=== PATIENT | male | born 1965 | race Caucasian/White ===

== ENCOUNTER → 2018-07-14 08:11 | Outpatient (CLI) | payer MEDICAID, SELFPAY ==
[2018-07-11 08:41] VITALS: BMI 36.9
[2018-07-14 12:23] LABS: Absolute Lymphocyte Count 2.74 X10^3/ul (0.83-4.51); Basophil# 0.02 X10^3/uL; Basophil% 0.2 % (0-1); Eosinophil# 0.44 X10^3/uL; Eosinophils% 4.5 % (0-5); Hematocrit 46.1 % (40-54); Hemoglobin 15.4 g/dl (13.0-16.5); Lymphocyte # 2.74 X10^3/ul (4.0); Lymphocyte % 28.2 % (19-41); Mean Corp Hgb Conc 33.4 g/gl (32-36); Mean Corpuscular Hgb 30.2 pg (27.0-32.0); Mean Corpuscular Volume 90.4 fL (80-94); Mean Platelet Vol. 10.2 fl (6.2-12.0); Monocyte# 0.52 X10^3/uL; Monocyte% 5.3 % (0-10); Neutrophil # 5.99 X10^3/uL (2.7-7.7); Neutrophil % 61.6 % (47-70); Platelet Count 272 K/mm3 (150-450); RBC Distribution Width CV 12.9 % (11.6-14.6); White Blood Count 9.7 K/mm3 (4.4-11.0)
[2018-07-14 12:26] LABS: POSITIVE COUNT NO; POSITIVE DIFFERENTIAL NO; POSITIVE MORPHOLOGY NO
[2018-07-14 12:59] LABS: ALB/GLOB Ratio 1.2 RATIO (0.9-2.4); AST(SGOT) 14 U/L (15-37); Alanine Aminotransfer ALT/SGPT 30 U/L (16-61); Alkaline Phosphatase 77 U/L (45-117); Anion Gap 7 (5-15); BUN 12 mg/dL (7-18); BUN/Creat Ratio 13.4 RATIO (10-20); Calcium,Total 8.8 mg/dL (8.5-10.1); Chloride 104 mmol/L (98-107); Cholesterol 197 mg/dL (200); EST Glomerular Filtration Rate 94 mL/min (>60); Est Glom Filt Rate - Afr Amer 114 mL/min (>60); Globulin 3.3 g/dL (2.2-4.2); Glucose 220 mg/dL (74-106); High Density Lipoprotein 42 mg/dL; Potassium 4.3 mmol/L (3.5-5.1); Protein, Total 7.3 g/dL (6.4-8.2); Sodium Level 136 mmol/L (136-145); Triglycerides 227 mg/dL; Very Low Density Lipoprotein 45 mg/dL (5-40)
[2018-07-14 13:08] LABS: Microalbumin,Random Urine 18.9 mg/L (NO RANGE EST.); Microalbumin:Creatinine Ratio 11.1 mg/g CRE (<30 mg/g CRE)
== END ==
PROVIDERS: Family Provider Family Medicine; PCP Internal Medicine; Visit Provider Internal Medicine
DX: E11.9 Type 2 diabetes mellitus without complications (principal)
CPT/HCPCS: 36415; 80053; 80061; 82043; 82570; 85025

== ENCOUNTER 2019-01-31 06:49 | Day surgery (SDC) | payer OTHER, SELFPAY ==
[2018-12-13 08:35] VITALS: BMI 36.9
[2019-01-31 07:27] VITALS: BP 118/73; PULSE 83; RESP 16; TEMP 36.3; O2SAT 97; BMI 34.7
[2019-01-31] MEDS: Lactated Ringers 1,000 ML 100 ML IV (07:38)
--- NOTE | 2019-01-31 07:52 | HP.PCM_ITS ---
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 Is patient in pain?: No Allergies No Known Allergies Allergy (Verified 12/13/18 08:34) Medications escitalopram 10 mg tablet 10 mg PO DAILY #90 tab 10/03/18 [Rx Confirmed 12/13/18] glimepiride 4 mg tablet 4 mg PO QAM #90 tab 10/03/18 [Rx Confirmed 12/13/18] metformin 1,000 mg tablet 1,000 mg PO BID #180 tab 10/03/18 [Rx Confirmed 12/13/18] nicotine 14 mg/24 hr daily transdermal patch 1 patch TRANSDERMAL DAILY #14 ea 10/31/18 [Rx Confirmed 12/13/18] nicotine 7 mg/24 hr daily transdermal patch 1 patch TRANSDERMAL Q24H #14 ea 10/31/18 [Rx Confirmed 12/13/18] dulaglutide 1.5 mg/0.5 mL subcutaneous pen injector 1.5 mg SC QWEEK #2 ml 12/02/18 [Rx Confirmed 12/13/18] PFSH Medical History Anxiety (Chronic) History of pneumonia (Acute) Shoulder pain (Acute) Knee pain (Acute) Limb weakness (Acute) Chronic neck and back pain (Chronic) Diabetes (Chronic) Surgical History History of colonoscopy (Acute) History of tonsillectomy (Acute) History of vasectomy (Acute) Family History Grandfather Colon cancer Alcoholism Father Hypertension Mother Dementia Social History (Updated 12/13/18 @ 09:05 by Fco Harley MD) Smoking Status: Current every day smoker Tobacco: How many years used: 35 alcohol intake: current alcohol intake frequency: a few times a month substance use type: does not use what type of physical activity do you participate in: other details: active job HPI HPI HPI: FCO LUGO, is a 53 M who presents to the office today for HPI HPI Surgical H&P: Yes HPI: FCO LUGO, is a 53 M who presents to the office today for surgical consultation regarding a personal history of colon polyps. 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 Type II diabetic. He has been recently placed on Trulicity. His most recent hemoglobin A1c was 10.1. His most recent colonoscopy was September 23, [address] Jf Lynne under monitored anesthesia care. 3 sessile polyps were found in the rectum and in the transverse colon and at 30 cm proximal to the anus. These polyps were 10 mm in size. Hot snare was used for resection. A 15 mm polyp was found 40 cm proximal to the anus. Diverticulosis was identified as well. Random colonic biopsies showed no evidence of colitis. The transverse colon polyp was a tubular adenoma. The 40 cm polyp tubular adenoma. The polyp at 30 cm was a hyperplastic polyp in the rectal polyp was hyperplastic polyp. The patient is now referred for follow-up. He has no complaints of bright red blood per rectum or melena. No abdominal pain. No constipation or diarrhea. He otherwise has a stable feeling of health and wellness. It is of note that he does use tobacco and his diabetic control is challenging ROS General General: No weight change, appetite, fatigue, colon cancer, breast cancer or weakness HEENT HEENT: No difficulty swallowing, eye injury, eye surgery, swollen glands or hoarseness Endo Endocrine: Yes diabetes mellitus; no thyroid disease, thyroid cancer, Hair loss, heat intolerance or cold intolerance Skin Skin: No rash or changing moles Breast Breast: No left breast lump, right breast lump, nipple discharge, breast pain, abnormal mammogram, abnormal US or breast enlargement Musc Musculoskeletal: No back problems, arthritis, rheumatoid arthritis, gout or joint pain Cardio Cardiovascular: No murmur, pacemaker, heart disease, atrial fibrillation, high blood pressure, heart attack, heart stent, palpitations, shortness of breat with exertion or chest pain Psych Psychiatric: No depression, anxiety or hearing voices Resp Respiratory: No shortness of breath, No sleep apnea, No cough, No COPD, No asthma, No emphysema, No wheezing Gastro Gastrointestinal: No abdominal pain, No nausea or vomiting, No diarrhea, No constipation, No blood in stool, No acid reflux, No hemorrhoids, No ulcers, No gallbladder problem, No black,tarry stools Gokul Hematologic: No blood thinners, No blood disorders, No bleeding, No anemia, No blood clots Neuro Neurologic: No system reviewed and no additional complaints, except as docu, No as per HPI, No abnormal walking, No abnormal hearing, No abnormal movements, No abnormal speech, No behavioral changes, No burning sensations, No confusion, No seizure-like activity, No unsteadiness, No dizziness, No localized weakness, No frequent falls, No headache(s), No lack of coordination, No loss of vision, No memory loss, Yes numbness, No other visual disturbances, No radiating pain, No restless legs, No sensory deficit, No fainting, Yes tingling, No tremor(s), No weakness, No other Exam Const General: cooperative, comfortable, no acute distress Nutritional Appearance: obese Orientation: alert, awake HENMT Head: normal to inspection Chest Breast Palpation: No nipple discharge Resp Effort & Inspection: normal respiratory effort Auscultation: clear to auscultation bilaterally Cardio Rate: regular rate Rhythm: regular rhythm Heart Sounds: no murmurs GI Palpation: soft, no hepatosplenomegaly Auscultation: normal bowel sounds Neuro General: alert, awake Extrem General: no calf tenderness bilaterally Psych Affect: normal affect Assessment & Plan Problems 1. Personal history of colonic polyps Z86.010 Plan 53-year-old gentleman with a personal history of colon polyps with his most recent colonoscopy September 23, 2015. He had sizable polyps at that time. I recommend to him a colonoscopy with possible biopsy or polypectomy as indicated. His previous procedure was performed with monitored anesthesia care and we will duplicate. The patient is diabetic I have strongly counseled him on taking more of a personal energy and interest in controlling his diabetic health. The patient is a tobacco smoker. He was provided nicotine patches. He is not utilizing them. I have encouraged him to initiate cessation of tobacco. I very much appreciate the kind opportunity of assisting with his surgical care CC: Dr. Jenelle Harley M.D., F.A.C.S. Coding Level of Care Code 92171 Diagnoses Personal history of colonic polyps Z86.010 I have re-examined the patient. There are no clinical changes since date of exam.
--- NOTE | 2019-01-31 08:00 | COLBX_PTH ---
PATIENT: FCO LUGO LOC: EN U#:[id number] AGE/SX: 53/M ROOM: RE01/31/[address]: Dr. Fco Harley MD : 1965 BED: DIS: 01/31/2019 SPEC #: [id number] RECD: 01/31/19 12:12 STATUS: AMY LUISITO #: [id number] BIA: 01/31/19 08:[address]: Fco Harley DEPT: SURGICAL PATHOLOGY RECD BY: Yogesh Ahn ENTERED: 01/31/19 14:14 SP TYPE: COLON BX OTHR DR: Dr. Arabella Almanzar MD Tissues: A - Cecum, NOS B - Transverse colon C - Rectum, NOS Procedures: Surgery Specimen Level IV HEADER OPERATION: Colonoscopy (MAC) PRE-OP DIAGNOSIS: Personal history of colon polyps TISSUE SUBMITTED: A. Cecum polyp, B. Mid transverse polyp biopsy, C. Rectal polyp biopsy MICROSCOPIC DIAGNOSIS A. Cecal polyp, biopsy: Fragments of tubular adenoma. Fragments of fecal material. B. Mid transverse colon polyp, biopsy: Tubular adenoma. C. Rectal polyp, biopsy: Fragments of fecal material. Colonic mucosal tissue is not identified. SJ:jatin 02/01/19 COMMENT Correlation with clinical, endoscopic findings and appropriate follow up are necessary. MICROSCOPIC DESCRIPTION Slides are reviewed. GROSS DESCRIPTION A - Received in fixative is one container labeled with the patient's name and designated cecum polyp. The specimen consists of multiple irregular fragments of light tee soft tissue mixed with fecal material that in aggregate measure 2.5 x 0.3 x 0.1 cm. The specimen is totally submitted in one cassette. B - Received in fixative is one container labeled with the patient's name and designated mid transverse colon polyp. The specimen consists of multiple irregular fragments of light tee soft tissue that in aggregate measure 0.5 x 0.5 x 0.1 cm. The specimen is totally submitted in one cassette. C - Received in fixative is one container labeled with the patient's name and designated rectal polyp biopsy. The specimen consists of scant fragments of brownish material that in aggregate measure 0.2 x 0.1 x 0.1 cm. The specimen is totally submitted in one cassette. / FLAVIA:jatin 01/31/19 TC:1 CPT: 11957 x3
[2019-01-31 08:16] LABS: Bedside Glucose 114 mg/dL (70-110)
--- NOTE | 2019-01-31 08:28 | OP.ENDO_ITS ---
01/31/2019 Arabella Almanzar MD [address] [place] [address] [place] [address] Re : Colonoscopy procedure for Jeffery Ramos Dear Dr. Almanzar This procedure was performed on Thursday, January 31, 2019. My impressions and recommendations are as follows: Impressions : - Hemorrhoids found on perianal exam. - One 5 mm polyp in the cecum, removed with a hot snare. Resected and retrieved. - One 4 mm polyp in the mid descending colon, removed with a cold biopsy forceps. Resected and retrieved. - One 4 mm polyp in the rectum, removed with a hot snare. Resected and retrieved. - Diverticulosis in the sigmoid colon. Recommendations : - Discharge patient to home. - Resume previous diet. - Continue present medications. - Repeat colonoscopy in 3 years for surveillance based on pathology results. - Telephone my office for pathology results in 1 week. My findings are described in the full procedure note, which is enclosed. If I can be of further assistance, please feel free to contact me at Doctor phone number(s): Work: . Sincerely, Jeffery Harley MD 01/31/2019 8:28:31 AM This report has been signed electronically.
[2019-01-31 08:30] VITALS: BP 100/63; BP 118/73; PULSE 87; RESP 16; TEMP 36.2; O2SAT 96
[2019-01-31 08:35] VITALS: BP 112/78; BP 118/73; PULSE 81; RESP 16; O2SAT 95
[2019-01-31 08:40] VITALS: BP 118/73; BP 118/77; PULSE 74; RESP 16; O2SAT 98
[2019-01-31 08:45] VITALS: BP 108/79; BP 118/73; PULSE 76; RESP 16; TEMP 36.3; O2SAT 97
[2019-01-31 09:10] VITALS: BP 118/73
== END 2019-01-31 09:16 | disposition home or self-care (01) ==
LOC: EN 06:50 → AC 06:51
PROVIDERS: Family Provider Internal Medicine; PCP Internal Medicine; Referring Provider Internal Medicine; Visit Provider Surgery
PROC: 0DJD8ZZ Inspection of Lower Intestinal Tract, Via Natural or Artificial Opening Endoscopic (ICD-10-PCS; CPT 45378; principal; 2019-01-31 07:55)
DX: D12.0 Benign neoplasm of cecum (principal); D12.3 Benign neoplasm of transverse colon; K62.1 Rectal polyp; K57.30 Diverticulosis of large intestine without perforation or abscess without bleeding; K64.9 Unspecified hemorrhoids; Z86.010 Personal history of colon polyps; F41.9 Anxiety disorder, unspecified; M54.9 Dorsalgia, unspecified; M54.2 Cervicalgia; G89.29 Other chronic pain; E11.9 Type 2 diabetes mellitus without complications; Z87.01 Personal history of pneumonia (recurrent); Z79.84 Long term (current) use of oral hypoglycemic drugs; Z79.899 Other long term (current) drug therapy; F17.200 Nicotine dependence, unspecified, uncomplicated
CPT/HCPCS: 45380; 45385; 82962; 88305; J7120

== ENCOUNTER 2021-03-03 12:39 | Emergency (ER) | payer OTHER, SELFPAY ==
[2021-03-03 12:40] VITALS: BP 156/79; PULSE 94; RESP 18; TEMP 36.6; O2SAT 97; BMI 34.2
--- NOTE | 2021-03-03 14:45 | EX.ED.DYSGE1 ---
HPI History of Present Illness Chief Complaint: Other, Pain/Inj Informant: patient Narrative Narrative: Patient presents with mostly right-sided neck pain. Is been having this on and off for about 3 months. It will bother him and then improved. It is mostly sore when he looks down to the ground. Left right and up bothers it a little bit. He occasionally has had pain radiating to the upper part of the shoulder but never down further. He has never had numbness tingling or weakness of his hands. He has no specific injury. 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 Calos Barraza MD) Anxiety Chronic neck and back pain Diabetes History of pneumonia Knee pain Limb weakness Personal history of colonic polyps Shoulder pain Home Medications dulaglutide 1.5 mg/0.5 mL subcutaneous pen injector 1.5 mg SC QWEEK #2 ml 12/02/18 [Rx Last Taken Unknown] escitalopram oxalate 10 mg tablet 10 mg PO DAILY #90 tab 04/18/20 [Rx Last Taken Unknown] glimepiride 4 mg tablet See Rx Instructions .ROUTE .COMPLEX #30 tablet 07/22/20 [Rx Last Taken Unknown] metformin 1,000 mg tablet 1,000 mg PO BID #180 tab 02/21/21 [Rx Last Taken Unknown] cyclobenzaprine 10 mg PO BID PRN #15 tab 03/03/21 [Rx Last Taken Unknown] naproxen 500 mg PO BID #20 tab 03/03/21 [Rx Last Taken Unknown] Allergy/AdvReac Type Severity Reaction Status Date / Time No Known Allergies Allergy Verified 03/03/21 13:57 Family History Grandfather Colon cancer Alcoholism Father Hypertension Mother Dementia Surgical History History of colonoscopy History of tonsillectomy History of vasectomy Social History Smoking Status: Current every day smoker tobacco type: cigarettes Tobacco: How many years used: 35 alcohol intake: current alcohol intake frequency: a few times a month substance use type: does not use what type of physical activity do you participate in: other details: active job ROS ROS ED Constitutional Constitutional ED: Denies chills, fever(s) or sweats Eyes Eyes: Denies blurry vision ENT ENT ED: Denies ear pain, rhinorrhea or sore throat Cardiovascular Cardiovascular: Denies chest pain, palpitations or racing heartbeat Respiratory/Chest Respiratory/Chest: Denies cough, dyspnea, dyspnea on exertion or sputum Gastrointestinal Gastrointestinal: Denies abdominal pain Musculoskeletal Musculoskeletal: Reports neck pain; Denies arthralgias, back pain or myalgias Integumentary Denies Abrasions or rash Neurologic Neurologic: Reports other Details: Patient has had some pain radiate to the upper shoulder on the right but no paresthesias. ; Denies headache(s), paresthesias or weakness Endocrine Endocrinology: Reports other Details: He does have history of diabetes, is taking his meds, no polyuria polydipsia. ; Denies polydipsia or polyuria EXAM Physical Exam Const Vital Signs: 03/03/21 12:40 Temperature 98 F Temperature Source Temporal Pulse Rate 94 Respiratory Rate 18 Blood Pressure 156/79 H Blood Pressure Mean 104 Pulse Ox 97 Oxygen Delivery Method Room Air Positive well nourished and well developed General Appearance ED: well developed and NAD HEENT Reports moist mucous membranes HEENT Narrative: No rashes on head or neck area. Negative for trauma or tenderness Eyes PERRL and EOMs intact bilaterally General Eye ED: Negative for pale conjunctiva or scleral icterus Neck Neck Narrative: Patient does have some right paraspinal tenderness and tenderness down in the trapezius on the right. He has some discomfort looking down. This is more than looking left right or up. No crepitance. No JVD. No lymphadenopathy. No subcutaneous air. Chest Wall inspection of chest normal Resp normal respiratory effort and clear to auscultation bilaterally Effort and Inspection: Negative for pain with movement Auscultation: Negative for rales, rhonchi or wheezes Cardio regular rate, regular rhythm and no murmurs GI normal to inspection, nondistended, normoactive bowel sounds and non-tender Palpation: soft Back/Spine Back/Spine Narrative: Cervical spine tenderness as above. Cervical Spine: cervical spine tenderness Extremity normal to inspection Extremity Narrative: Normal shock absorption floor layer strength bicep tricep strength. Normal distal pulses. Normal sensation. General Extremety ED: Negative for tenderness Neuro oriented x3 Sensorium / Orientation: alert Psych mental status grossly normal Skin no rashes or lesions noted MDM MDM MDM Narrative Medical decision making narrative: We did do x-ray of his neck as this is been going off and on for several months. There is no mass or erosion noted. There was a little loss of cervical lordosis likely due to spasm clinically. There is spondylosis and disc space narrowing diffusely. I think the patient's symptoms are likely from arthritic changes and some muscle spasm. I would like to avoid steroids on him with his diabetes. We will start off with nonsteroidals muscle relaxants ice and rest. He will follow up with his physician. Physical therapy may help. If he develops worsening pain, numbness, weakness, trouble breathing chest pain diaphoresis fevers or other concerning symptoms he should return. Radiography Diagnostic Testing: Clinical Impression(s) from Imaging Studies Cervical Spine X-Ray 03/03/21 14:50 IMPRESSION: Loss of the normal cervical lordosis. Multilevel spondylosis and disc space narrowing. Electronically Signed: Josiah Dyson MD at 15:15 EDT , Service support , Discharge Plan Triage Chief Complaint: Other, Pain/Inj ED Provider: Calos Barraza Dx/Rx/DC Orders Clinical Impression: Cervical myofascial strain, Cervical paraspinal muscle spasm Instructions: ED Neck Sprain or Strain, ED Neck Spasm, No Trauma Prescriptions: New cyclobenzaprine 10 mg tablet 10 mg PO BID PRN (Reason: muscle spasm) Qty: 15 RF: 0 naproxen 500 MG tablet 500 mg PO BID Qty: 20 RF: 0 No Action Trulicity 1.5 mg/0.5 mL pen injector 1.5 mg SC QWEEK Qty: 2 RF: 2 escitalopram oxalate 10 mg tablet 10 mg PO DAILY Qty: 90 RF: 2 glimepiride 4 mg tablet See Rx Instructions .ROUTE .COMPLEX Qty: 30 RF: 11 metformin 1,000 mg tablet 1,000 mg PO BID Qty: 180 RF: 2 Primary Care Provider: Arabella Almanzar Referrals: Arabella Almanzar MD [Primary Care Provider] - 1 Week if not improving Disposition Disposition: Home, Self Care
--- NOTE | 2021-03-03 14:50 | RAD_ITS ---
STUDY: X-RAY - CERVICAL SPINE REASON FOR EXAM: Male, 55 years old. Right sided pain TECHNIQUE: 3 view(s) of the cervical spine were obtained. COMPARISON: None FINDINGS: Normal anterior atlantoaxial articulation. Normal odontoid process. There is straightening of the normal cervical lordosis. There is multi-level endplate spondylosis. There is multi-level degenerative disc disease with multilevel disc space narrowing. Normal visualized intervertebral neuroforamina. The soft tissue structures are unremarkable. RAD/Cerv Spine 2 or 3 Views IMPRESSION: Loss of the normal cervical lordosis. Multilevel spondylosis and disc space narrowing. Electronically Signed: Josiah Dyson MD at 15:15 EDT , Service support ,
== END 2021-03-03 16:05 | disposition home or self-care (01) ==
PROVIDERS: Emergency Provider Emergency Medicine; PCP Internal Medicine
DX: S16.1XXA Strain of muscle, fascia and tendon at neck level, initial encounter (principal); M62.838 Other muscle spasm; M47.812 Spondylosis without myelopathy or radiculopathy, cervical region; X58.XXXA Exposure to other specified factors, initial encounter; Y93.9 Activity, unspecified; Y92.9 Unspecified place or not applicable; E11.9 Type 2 diabetes mellitus without complications; F41.9 Anxiety disorder, unspecified; G89.29 Other chronic pain; Z87.01 Personal history of pneumonia (recurrent); Z86.010 Personal history of colon polyps; Z79.84 Long term (current) use of oral hypoglycemic drugs; Z79.899 Other long term (current) drug therapy; F17.210 Nicotine dependence, cigarettes, uncomplicated
CPT/HCPCS: 72040; 99282

== ENCOUNTER → 2021-03-11 13:44 | Outpatient (CLI) | payer OTHER, SELFPAY ==
[2021-03-11 15:03] LABS: Absolute Lymphocyte Count 3.51 X10^3/uL (0.83-4.51); Absolute Neutrophil Count 7.1 X10^3/uL (2.0-7.7); Basophil# 0.05 X10^3/uL; Basophil% 0.4 % (0-1); Eosinophil# 0.29 X10^3/uL; Eosinophils% 2.5 % (0-5); Hematocrit 46.2 % (40-54); Hemoglobin 16.1 g/dL (13.0-16.5); Lymphocyte # 3.51 X10^3/ul (0.83-4.51); Lymphocyte % 30.2 % (19-41); Mean Corp Hgb Conc 34.8 g/dL (32-36); Mean Corpuscular Volume 86.2 fL (80-94); Mean Platelet Vol. 10.1 fl (6.2-12.0); Monocyte# 0.64 X10^3/uL; Monocyte% 5.5 % (0-10); NRBC Flagged by Analyzer 0 % (0-5); Platelet Count 326 K/mm3 (150-450); RBC Distribution Width CV 11.8 % (11.6-14.6); RBC Distribution Width SD 36.9 fl (35.1-43.9); Red Blood Count 5.36 M/mm3 (4.6-6.2); White Blood Count 11.6 K/mm3 (4.4-11.0)
[2021-03-11 15:19] LABS: AST(SGOT) 11 U/L (15-37); Alanine Aminotransfer ALT/SGPT 28 U/L (16-61); Albumin, Serum 3.8 g/dL (3.2-5.0); Alkaline Phosphatase 84 U/L (45-117); Anion Gap 7 (5-15); BUN 12 mg/dL (7-18); BUN/Creat Ratio 12.6 RATIO (10-20); Calcium,Total 8.8 mg/dL (8.5-10.1); Chloride 103 mmol/L (98-107); Cholesterol 197 mg/dL (200); Creatinine, Serum 0.96 mg/dL (0.70-1.30); EST Glomerular Filtration Rate 87 mL/min (>60); Est Glom Filt Rate - Afr Amer 105 mL/min (>60); Globulin 3.9 g/dL (2.2-4.2); Glucose 142 mg/dL (74-106); High Density Lipoprotein 48 mg/dL; Protein, Total 7.7 g/dL (6.4-8.2); Sodium Level 137 mmol/L (136-145); Triglycerides 241 mg/dL; Very Low Density Lipoprotein 48 mg/dL (5-40)
[2021-03-11 15:35] LABS: Microalbumin,Random Urine < 5.0 mg/L (NO RANGE EST.)
== END ==
PROVIDERS: PCP Internal Medicine; Referring Provider Internal Medicine; Visit Provider Internal Medicine
DX: E11.9 Type 2 diabetes mellitus without complications (principal)
CPT/HCPCS: 36415; 80053; 80061; 82043; 82570; 85025

== ENCOUNTER 2022-12-28 11:54 | Emergency (ER) | payer OTHER, SELFPAY ==
[2022-12-28 11:55] VITALS: BP 99/61; PULSE 127; RESP 18; TEMP 36.6; O2SAT 96; BMI 34.7
[2022-12-28] MEDS: DiphenhydrAMINE 50 MG/ML Syringe 25 MG IV (12:38)
[2022-12-28 12:39] VITALS: BP 128/74; PULSE 98; O2SAT 97
--- NOTE | 2022-12-28 12:41 | EDS_ITS ---
HPI History of Present Illness Chief Complaint: Allergic Reaction Informant: patient Onset/Context/Timing Onset: Today Context: Sudden Onset Timing: Continuous Quality: Redness, swelling Location: Generalized, mainly on his back Worsened by: Nothing Relieved by: Nothing Narrative Narrative: The patient presents with multiple stings from yellow jackets that occurred today. 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 Patient states he was stung multiple times. Patient states it was mostly on his back. Patient states he did develop some hives after being stung. Patient became very anxious. Patient did have a cough and some mild shortness of breath. Patient denies any difficulty swallowing. Patient admits to some nausea but denies any vomiting. Patient also admits to a headache. Patient states she has never had an allergic reaction to bee stings in the past. [facility] Medical History Anxiety Chronic neck and back pain Chronic neck pain Diabetes Flu vaccine need History of pneumonia Knee pain Limb weakness Obesity (BMI 30-39.9) Personal history of colonic polyps Shoulder pain Home Medications flash glucose scanning reader (FreeStyle Merlin 2 [place]) #4 ea 04/09/21 [Rx Last Taken Unknown] escitalopram oxalate 10 mg tablet 10 mg PO DAILY #90 tabs 05/28/21 [Rx Last Taken Unknown] flash glucose sensor (FreeStyle Merlin 2 Sensor kit) #4 ea 05/28/21 [Rx Last Taken Unknown] glimepiride 4 mg tablet 4 mg PO BID #180 tabs 05/28/21 [Rx Last Taken Unknown] metformin 1,000 mg tablet 1,000 mg PO BID #180 tabs 05/28/21 [Rx Last Taken Unknown] ertugliflozin 15 mg tablet (Steglatro) 15 mg PO QAM #90 tabs 01/06/22 [Rx Last Taken Unknown] Allergy/AdvReac Type Severity Reaction Status Date / Time No Known Allergies Allergy Verified 12/28/22 11:58 Family History Grandfather Colon cancer Alcoholism Father Hypertension Mother Dementia Surgical History History of colonoscopy History of tonsillectomy History of vasectomy Social History Smoking Status: Current every day smoker tobacco type: e-cigarettes Tobacco: How many years used: 35 alcohol intake: current alcohol intake frequency: a few times a month substance use type: does not use what type of physical activity do you participate in: other details: active job ROS ROS ED Constitutional Constitutional ED: Denies chills or fever(s) Eyes Eyes: Denies blurry vision or change in vision ENT ENT ED: Denies rhinorrhea or sore throat Cardiovascular Cardiovascular: Denies chest pain or palpitations Respiratory/Chest Respiratory/Chest: Reports cough and dyspnea Gastrointestinal Gastrointestinal: Reports nausea; Denies vomiting Genitourinary Genitourinary ED: Denies dysuria or hematuria Musculoskeletal Musculoskeletal: Reports back pain; Denies neck pain Integumentary Denies abscess or rash Neurologic Neurologic: Reports headache(s); Denies weakness Allergic/Immunologic Allergic/Immunologic ED: Reports urticaria; Denies mouth swelling EXAM Physical Exam Const Vital Signs: 12/28/22 11:55 12/28/22 12:39 Temperature 97.8 F Temperature Source Temporal Pulse Rate 127 H 98 Respiratory Rate 18 Blood Pressure 99/61 128/74 H Blood Pressure Mean 73 92 Pulse Ox 96 97 Oxygen Delivery Method Room Air Room Air Positive well nourished and well developed General Appearance ED: well developed and NAD HEENT Reports moist mucous membranes HEENT Narrative: Oropharynx is clear. Airway is patent. There is no pharyngeal edema noted. Neck supple and no JVD Resp normal respiratory effort and clear to auscultation bilaterally Cardio regular rate and regular rhythm GI non-tender and non-distended Palpation: soft Neuro oriented x3, CN's II-XII intact bilaterally and no sensory deficits noted Sensorium / Orientation: alert Motor Exam: strength 5/5 throughout Psych mental status grossly normal Mood & Affect: anxious Skin Skin Narrative: There are multiple areas of stings with local surrounding erythema. There are no vesicles or pustules. There are no petechia noted. There is no involvement of the mucous membranes. There is no involvement of the palms or soles. MDM MDM MDM Narrative Medical decision making narrative: Patient was advised that this is most likely a local reaction to the multiple stings. It does not appear to be a generalized allergic reaction. Patient was given a dose of Benadryl here. Patient will be observed in the emergency department. Treatment and Re-Evaluation :: Patient is feeling somewhat better on reevaluation. Patient was advised that this is local reaction to the hymenoptera stings. Patient was advised that this is not a systemic allergic reaction. Patient was instructed to use ice packs. Patient was instructed to take Benadryl as needed for any swelling or itching. Patient was instructed to follow-up with his primary care physician in 5 to 7 days. Patient understood and was agreeable with plan. All questions were answered. Discharge Plan Triage Chief Complaint: Allergic Reaction ED Provider: Frankie Welsh Dx/Rx/DC Orders Clinical Impression: Local reaction to hymenoptera sting Instructions: ED Insect Sting, Local Reaction Prescriptions: No Action (DME) FreeStyle Merlin 2 [place] Misc See Rx Instructions .ROUTE .MEDSUPPLY Qty: 4 4RF Rx Instructions: As directed escitalopram oxalate 10 mg tablet 10 mg PO DAILY Qty: 90 2RF (DME) FreeStyle Merlin 2 Sensor Kit See Rx Instructions .ROUTE .MEDSUPPLY Qty: 4 4RF Rx Instructions: As directed glimepiride 4 mg tablet 4 mg PO BID Qty: 180 2RF metformin 1,000 mg tablet 1,000 mg PO BID Qty: 180 2RF Steglatro 15 mg tablet 15 mg PO QAM Qty: 90 0RF Primary Care Provider: Arabella Almanzar Referrals: Arabella Almanzar MD [Primary Care Provider] - 5-7 Days Disposition Disposition: Home, Self Care
== END 2022-12-28 14:14 | disposition home or self-care (01) ==
PROVIDERS: Emergency Provider Emergency Medicine; PCP Internal Medicine; Visit Provider Emergency Medicine
DX: T63.441A Toxic effect of venom of bees, accidental (unintentional), initial encounter (principal); E11.9 Type 2 diabetes mellitus without complications; R51.9 Headache, unspecified; R06.02 Shortness of breath; R11.0 Nausea; F41.9 Anxiety disorder, unspecified; Z79.899 Other long term (current) drug therapy; Z79.84 Long term (current) use of oral hypoglycemic drugs; Z98.52 Vasectomy status; F17.290 Nicotine dependence, other tobacco product, uncomplicated; L50.0 Allergic urticaria
CPT/HCPCS: 96374; 99282; J7030; A4216

== ENCOUNTER 2023-11-22 10:08 | Emergency (ER) | payer OTHER, SELFPAY ==
[2023-11-22 10:09] VITALS: BP 146/92; PULSE 104; RESP 16; TEMP 36.1; O2SAT 99; BMI 32.0
[2023-11-22 10:20] VITALS: BP 146/92; PULSE 104; RESP 16; TEMP 36.1; O2SAT 99
[2023-11-22 11:02] LABS: Absolute Lymphocyte Count 1.46 X10^3/uL (0.83-4.51); Absolute Neutrophil Count 5.9 X10^3/uL (2.0-7.7); Basophil# 0.04 X10^3/uL; Basophil% 0.5 % (0-1); Eosinophil# 0.19 X10^3/uL; Eosinophils% 2.3 % (0-5); Hematocrit 45.8 % (40-54); Hemoglobin 15.6 g/dL (13.0-16.5); Lymphocyte # 1.46 X10^3/ul (0.83-4.51); Lymphocyte % 17.8 % (19-41); Mean Corp Hgb Conc 34.1 g/dL (32-36); Mean Corpuscular Hgb 29.7 pg (27.0-32.0); Mean Corpuscular Volume 87.1 fL (80-94); Mean Platelet Vol. 9.5 fl (6.2-12.0); Monocyte# 0.56 X10^3/uL; Monocyte% 6.8 % (0-10); NRBC Flagged by Analyzer 0 % (0-5); Neutrophil # 5.93 X10^3/uL (2.7-7.7); Neutrophil % 72.2 % (47-70); Platelet Count 256 K/mm3 (150-450); RBC Distribution Width CV 12.6 % (11.6-14.6); RBC Distribution Width SD 40.2 fl (35.1-43.9); Red Blood Count 5.26 M/mm3 (4.6-6.2); White Blood Count 8.2 K/mm3 (4.4-11.0)
--- NOTE | 2023-11-22 11:25 | RAD_ITS ---
STUDY: X-RAY - RIGHT FOOT CLINICAL: Male, 58 years old. Pain and redness overlying the great toe. TECHNIQUE: 3 view(s) of the foot. COMPARISON: None. FINDINGS: There is a plantar calcaneal spur. Normal visualized subtalar, talonavicular, calcaneocuboid, tarsal and tarsometatarsal articulations. Normal metatarsi. Normal metatarsophalangeal joint of the great toe. Normal tibial and fibular sesamoid bones. Normal interphalangeal joint of the great toe. Nondisplaced linear fracture along the distal portion of the proximal phalanx of the great toe. The fracture line extends to the articular surface Normal second through fifth metatarsophalangeal joints. Normal interphalangeal joints and phalanges of the lesser toes. Soft tissue swelling. RAD/Foot min 3 Views IMPRESSION: Nondisplaced oblique fracture through the mid to distal portion of the proximal fillings of the great toe. The fracture line extends to the articular surface. Electronically Signed: Josiah Dyson MD at 11:59 EDT ,
[2023-11-22 11:30] LABS: AST(SGOT) 17 U/L (15-37); Alanine Aminotransfer ALT/SGPT 25 U/L (16-61); Albumin, Serum 3.8 g/dL (3.2-5.0); Alkaline Phosphatase 76 U/L (45-117); Anion Gap 8 (5-15); BUN 15 mg/dL (7-18); BUN/Creat Ratio 13.4 RATIO (10-20); Bilirubin, Direct 0.15 mg/dL (0.00-0.30); Calcium,Total 9.3 mg/dL (8.5-10.1); Chloride 106 mmol/L (98-107); Creatinine, Serum 1.12 mg/dL (0.70-1.30); EST Glomerular Filtration Rate 72 mL/min (>60); Est Glom Filt Rate - Afr Amer 87 mL/min (>60); Estimated Creatinine Clearance 91.92 ml/min; Glucose 178 mg/dL (74-106); Potassium 4.3 mmol/L (3.5-5.1); Protein, Total 7.8 g/dL (6.4-8.2); Sodium Level 138 mmol/L (136-145)
--- NOTE | 2023-11-22 11:47 | EDS_ITS ---
HPI History of Present Illness Chief Complaint: Cellulitis Informant: patient and spouse/S.O. Narrative Narrative: 58-year-old male diabetic presenting to the emergency room with cellulitis of the right foot. Patient states that over the weekend he developed redness and swelling of the right great toe onto the dorsum of the foot. States he was seen at urgent care where he was prescribed Bactrim. He states he also sent a prescription for prednisone out of concern for possible gout. Patient states he has not been taking the prednisone. He has no history of gout. He denies any trauma to the foot. Patient states that today the redness seems more like pl aque extending up onto the dorsum of the mid toes. States he had a fever over the weekend. He has a picture of his foot from over the weekend which appears to show more redness than is present today. Patient notes that he has chronic decreased sensation in the feet. Patient notes that he fell couple weeks ago but injured the left leg. or any concerns He does not recall an injury to the foot [facility] Medical History Obesity (BMI 30-39.9) Chronic neck pain Flu vaccine need Personal history of colonic polyps Anxiety History of pneumonia Diabetes Chronic neck and back pain Limb weakness Knee pain Shoulder pain Home Medications ?Medication ?Instructions ?Recorded ?Last Taken ?Type dapagliflozin propanediol 10 mg 10 mg PO QAM #90 tabs 10/06/23 Unknown Rx tablet (Farxiga) flash glucose sensor (FreeStyle #4 ea 10/06/23 Unknown Rx Merlin 2 Sensor kit) metformin 500 mg tablet 500 mg PO BID #180 tabs 10/06/23 Unknown Rx nystatin-triamcinolone 100,000 1 applic topical DAILY #60 grams 10/06/23 Unknown Rx unit/g-0.1 % topical cream prednisone 20 mg tablet 40 mg (2 x 20 mg) PO DAILY 5 days 11/20/23 Unknown Rx #10 tabs sulfamethoxazole 800 1 tab PO BID 14 days #28 tabs 11/20/23 Unknown Rx mg-trimethoprim 160 mg tablet (Bactrim DS) Allergy/AdvReac Type Severity Reaction Status Date / Time No Known Allergies Allergy Verified 11/22/23 10:09 Family History Grandfather Colon cancer Alcoholism Father Hypertension Mother Dementia Surgical History History of colonoscopy History of tonsillectomy History of vasectomy Social History household members: spouse housing: house current occupational status: employed current occupation: self- contractor Smoking Status: Former smoker Tobacco: How many years used: 35 alcohol intake: current alcohol intake frequency: a few times a month substance use type: does not use what type of physical activity do you participate in: other details: active job seatbelt use: always do you feel safe at home: Yes ROS ROS ED Constitutional Constitutional ED: Reports fever(s); Denies chills or weight loss Eyes Eyes: Denies change in vision or diplopia ENT ENT ED: Denies ear pain, rhinorrhea or sore throat Cardiovascular Cardiovascular: Denies chest pain, orthopnea, palpitations or racing heartbeat Respiratory/Chest Respiratory/Chest: Denies cough, dyspnea or orthopnea Gastrointestinal Gastrointestinal: Denies abdominal pain, diarrhea, nausea or vomiting Genitourinary Genitourinary ED: Denies dysuria, hematuria or urinary frequency Musculoskeletal Musculoskeletal: Reports other Details: Right foot swelling and pain redness ; Denies arthralgias or myalgias Integumentary Reports rash; Denies abscess Neurologic Neurologic: Denies headache(s) or weakness Psychiatric Psychiatric: Denies anxiety, depression, suicidal ideation or suicidal thoughts Endocrine Endocrinology: Denies polydipsia, polyphagia or polyuria Allergic/Immunologic Allergic/Immunologic ED: Denies mouth swelling, tongue swelling or urticaria EXAM Physical Exam Const Vital Signs: 11/22/23 10:09 11/22/23 10:20 11/22/23 12:08 Temperature 97 F L 97 F L Temperature Source Temporal Temporal Pulse Rate 104 H 104 H 94 Respiratory Rate 16 16 16 Blood Pressure 146/92 H 146/92 H 119/80 Blood Pressure Mean 110 110 93 Pulse Ox 99 99 93 Oxygen Delivery Method Room Air Room Air Room Air Positive well nourished, well developed and obese General Appearance ED: well developed Nutritional Appearance: obese HEENT Reports normocephalic, head/scalp atraumatic and moist mucous membranes Eyes PERRL and EOMs intact bilaterally Neck no lymphadenopathy, supple and no JVD Resp normal respiratory effort and clear to auscultation bilaterally Cardio regular rate, regular rhythm and no murmurs GI normal to inspection, nondistended, normoactive bowel sounds and non-tender Palpation: soft Back/Spine no CVA tenderness and normal ROM Extremity Extremity Narrative: Right foot: There is swelling of the great toe with erythema extending over the dorsal surface onto the dorsum of the foot and extending laterally. Redness does not go above the midfoot. There is a darker lower purpleish hue to the proximal second third toes onto the dorsal surface as well. There is no increased warmth. I do not appreciate paronychia. General Extremety ED: Negative for edema General Extremity: Negative for edema Neuro oriented x3 and CN's II-XII intact bilaterally Sensorium / Orientation: alert Motor Exam: strength 5/5 throughout Psych mental status grossly normal Mood & Affect: Negative for depressed or tearful Skin no rashes or lesions noted and no wounds MDM MDM MDM Narrative Medical decision making narrative: Differential diagnosis includes diabetic foot infection/cellulitis, fracture, foreign body, gout Patient has concerns about Lyme's disease that he informed nursing about. He states he pulled the tick off of him. I can certainly send a Lyme screen on him but this is not classic for Lyme disease. My independent interpretation of the plain films of the right foot is a fracture of the proximal phalanx right great toe. White count 8.2 with 72.2 neutrophils. Glucose 178 normal LFTs. I spoke with radiology about the potential for pathologic fracture he did not feel that this was classic for them. I will have him continue his antibiotics. Postoperative shoe and podiatry follow-up. Patient notes understanding the plan is comfortable with it. History & Record Review Discussion w/independent historian: Patient and Significant other Lab Data Attestation: I reviewed the patient's lab results. Labs: Laboratory Results - last 24 hr 11/22/23 10:56 WBC 8.2 RBC 5.26 Hgb 15.6 Hct 45.8 MCV 87.1 MCH 29.7 MCHC 34.1 RDW Std Deviation 40.2 RDW Coeff of Cathleen 12.6 Plt Count 256 MPV 9.5 Immature Gran % (Auto) 0.400 Neut % (Auto) 72.2 H Lymph % (Auto) 17.8 L [place] % (Auto) 6.8 Eos % (Auto) 2.3 Baso % (Auto) 0.5 Absolute Neuts (auto) 5.9 Absolute Lymphs (auto) 1.46 Nucleated RBC % 0 Sodium 138 Potassium 4.3 Chloride 106 Carbon Dioxide 24.0 Anion Gap 8 BUN 15 Creatinine 1.12 Estim Creat Clear Calc 91.92 Est GFR (MDRD) Af Amer 87 Est GFR (MDRD) Non-Af 72 BUN/Creatinine Ratio 13.4 Glucose 178 H Calcium 9.3 Total Bilirubin 0.40 Direct Bilirubin 0.15 AST 17 ALT 25 Alkaline Phosphatase 76 Total Protein 7.8 Albumin 3.8 Globulin 4.0 Radiography Diagnostic Testing: Clinical Impression(s) from Imaging Studies Foot X-Ray 11/22/23 11:25 IMPRESSION: Nondisplaced oblique fracture through the mid to distal portion of the proximal fillings of the great toe. The fracture line extends to the articular surface. Electronically Signed: Josiah Dyson MD at 11:59 EDT , Management Discussion w/another healthcare provider: Radiologist Discharge Plan Triage Chief Complaint: Cellulitis ED Provider: Seth Multani Dx/Rx/DC Orders Clinical Impression: Type 2 diabetes mellitus, Cellulitis, Closed fracture of great toe, Diabetic neuropathy Instructions: ED Cellulitis, ED Fracture, Toe, Closed Prescriptions: No Action metformin 500 mg tablet 500 mg PO BID Qty: 180 1RF Farxiga 10 mg tablet 10 mg PO QAM Qty: 90 3RF nystatin-triamcinolone 100,000-0.1 unit/g-% cream 1 applic topical DAILY Qty: 60 2RF (DME) FreeStyle Merlin 2 Sensor Kit See Rx Instructions .ROUTE .MEDSUPPLY Qty: 4 4RF Rx Instructions: As directed sulfamethoxazole-trimethoprim [Bactrim DS] 800-160 mg tablet 1 tab PO BID 14 Days Qty: 28 0RF prednisone 20 mg tablet 40 mg PO DAILY 5 Days Qty: 10 0RF Primary Care Provider: Ronal Ramirez Referrals: Ronal Ramirez, DO [Primary Care Provider] - [place],Seth, DPM [Med Staff - Active Staff] - 1 Week Activity Restrictions/Additional Instructions: Continue the postop shoe until directed otherwise by podiatry Continue the Bactrim as prescribed Print Language: Ukrainian Disposition Disposition: Home, Self Care
[2023-11-22 12:08] VITALS: BP 119/80; PULSE 94; RESP 16; O2SAT 93
[2023-11-22 12:54] VITALS: BP 140/84; PULSE 90; RESP 16; TEMP 36.8; O2SAT 97
[2023-11-23 15:09] LABS: Lyme Scn Total Ab w/Rflx Negative (Negative)
== END 2023-11-22 12:59 | disposition home or self-care (01) ==
PROVIDERS: Emergency Provider Emergency Medicine; PCP Family Medicine; Visit Provider Emergency Medicine
DX: L03.115 Cellulitis of right lower limb (principal); E11.40 Type 2 diabetes mellitus with diabetic neuropathy, unspecified; S92.414A Nondisplaced fracture of proximal phalanx of right great toe, initial encounter for closed fracture; X58.XXXA Exposure to other specified factors, initial encounter; E66.9 Obesity, unspecified; Z68.32 Body mass index [BMI] 32.0-32.9, adult; Z79.84 Long term (current) use of oral hypoglycemic drugs; Z87.891 Personal history of nicotine dependence
CPT/HCPCS: 73630; 80048; 80076; 85025; 86618; 99284

== ENCOUNTER 2025-01-28 11:31 | Emergency (ER) | payer OTHER, SELFPAY ==
[2025-01-28 11:32] VITALS: BP 94/62; PULSE 83; RESP 15; TEMP 36.6; O2SAT 98
--- NOTE | 2025-01-28 11:45 | CT_ITS ---
PROCEDURE: BRAIN/HEAD WITHOUT CONTRAST 01/28/2025 REASON FOR EXAM: SYNCOPE, HEAD PRESSURE TECHNIQUE: Procedure Code: CTBR Modality: CT Procedure: BRAIN/HEAD WITHOUT CONTRAST Coronal and Sagittal reconstruction series were provided. One or more dose reduction techniques were used (e.g., Automated exposure control, adjustment of the mA and/or kV according to patient size, use of iterative reconstruction technique. RADIATION DOSE SUMMARY: CTDlvol: 44.99 mGy DLP: 863.60 mGycm COMPARISON: None. FINDINGS: Brain: Within normal limits for age. No restricted diffusion. No acute intracranial hemorrhage. No mass-effect or midline shift. No orbital abnormalities. Atherosclerotic calcifications of the carotid siphons. The craniocervical junction is unremarkable. CSF Spaces: Unremarkable. Sinuses/Mastoids: Clear. Bones: No acute bony abnormalities. CT/Brain/Head without Contrast IMPRESSION: No acute intracranial abnormalities. Reading Location: [id number]
--- NOTE | 2025-01-28 11:45 | CT_ITS ---
PROCEDURE: CTA HEAD AND NECK W/ CONTRAST 01/28/2025 REASON FOR EXAM: SYNCOPE, HEAD PRESSURE TECHNIQUE: Procedure Code: CTCTA.HDNCK Modality: CT Procedure: CTA HEAD AND NECK W/ CONTRAST Multiplanar Sagittal and Coronal images were obtained. CONTRAST: Isovue 370 VOLUME: 100 mL One or more dose reduction techniques were used (e.g., Automated exposure control, adjustment of the mA and/or kV according to patient size, use of iterative reconstruction technique). RADIATION DOSE SUMMARY: CTDlvol: 19.90 mGy DLP: 847.09 mGycm COMPARISON: None. FINDINGS: Aortic Arch: Normal size and branching pattern. No significant atherosclerotic plaque. Brachiocephalic and Subclavians: Unremarkable RIGHT Carotid: Right CCA: Unremarkable. Right ICA: Unremarkable. Right ECA: Unremarkable. LEFT Carotid: Left CCA: Unremarkable. Left ICA: Unremarkable. Left ECA: Unremarkable. Vertebrals: Codominant. Arise from the subclavians. Both vertebrals form the basilar. RIGHT Vertebral: Unremarkable. LEFT Vertebral: Unremarkable. Anatomy: [place] anatomy is normal. Aneurysm or avm: No intracranial aneurysms or large vascular malformations are identified. Anterior cerebral arteries: Unremarkable: Middle cerebral arteries: Unremarkable. Basilar artery: Unremarkable. Posterior cerebral arteries: Unremarkable. Other major branches of the posterior circulation: Unremarkable. Major venous structures: Unremarkable. Other findings: Neck: No lymphadenopathy. Lungs: Lung apices are clear. Bones: Bones are unremarkable. CT/CTA Head AND Neck W/ Contrast IMPRESSION: No hemodynamically significant stenosis in the head and neck. No aneurysm. Reading Location: [facility]
--- NOTE | 2025-01-28 11:46 | EKG12_ITS ---
Test Reason : Blood Pressure : */* mmHG Vent. Rate : 82 BPM Atrial Rate : 82 BPM P-R Int : 172 ms QRS Dur : 92 ms QT Int : 372 ms P-R-T Axes : 47 39 27 degrees QTcB Int : 434 ms Normal sinus rhythm Normal ECG Confirmed by KURT RAMIREZ, MERRITT ([id number]), editor index DWIGHT ROWE ([id number]) on 01/30/2025 7:59:50 AM Referred By: Confirmed By: MERRITT HICKS MD
[2025-01-28 11:48] VITALS: BMI 32.3
--- NOTE | 2025-01-28 11:50 | EX.ED.DYSGE1 ---
HPI History of Present Illness Chief Complaint: Syncope Detail of Chief Complaint: Syncope Informant: patient and spouse/S.O. Narrative Narrative: Patient presents to the emergency department with a syncopal episode that occurred this morning about an hour ago. Patient states that he was in the kitchen bent over the freezer working on something and began feeling lightheaded and then just remembers waking up on the kitchen floor. He thinks he was unconscious for maybe 10 to 15 seconds but then every time he tried to pick his head up would feel lightheaded and feel he was going to pass out again so he stayed on the kitchen floor for about 25 minutes. Complains of some pressure in his head. His states that maybe his eyes were twitching [id number] a little bit. Patient states that he has been having some lightheaded spells for several weeks off-and-on would last 10 to 15 seconds at a time and resolved. He has had episodes of syncope in the past but usually would recover pretty quickly. Denies recent illness. He denies chest pain or palpitations. Denies racing heart. Patient is a type II diabetic with no heart history. [facility] Medical History Obesity (BMI 30-39.9) Chronic neck pain Flu vaccine need Personal history of colonic polyps Anxiety History of pneumonia Diabetes Chronic neck and back pain Limb weakness Knee pain Shoulder pain Home Medications ?Medication ?Instructions ?Recorded ?Last Taken ?Type flash glucose sensor (FreeStyle #4 ea 12/08/23 Unknown Rx Merlin 2 Sensor kit) metformin 1,000 mg tablet 1,000 mg PO BID #180 tabs 05/31/24 01/27/25 Rx dapagliflozin propanediol 10 mg 10 mg PO QAM #90 tabs 07/05/24 01/27/25 Rx tablet (Farxiga) Allergy/AdvReac Type Severity Reaction Status Date / Time No Known Allergies Allergy Verified 01/28/25 11:32 Family History Grandfather Colon cancer Alcoholism Father Hypertension Mother Dementia Surgical History History of colonoscopy History of tonsillectomy History of vasectomy Social History household members: spouse housing: house current occupational status: employed current occupation: self- contractor Smoking Status: Former smoker Tobacco: How many years used: 35 alcohol intake: current alcohol intake frequency: a few times a month substance use type: does not use what type of physical activity do you participate in: other details: active job seatbelt use: always do you feel safe at home: Yes ROS ROS ED ROS Narrative Syncopal episode Review of Systems ROS Unobtainable: other Constitutional Constitutional ED: Reports lethargy; Denies chills, fever(s), sweats or weight loss Eyes Eyes: Denies blurry vision, change in vision or diplopia ENT ENT ED: Denies rhinorrhea or sore throat Cardiovascular Cardiovascular: Denies chest pain, orthopnea or racing heartbeat Respiratory/Chest Respiratory/Chest: Reports dyspnea and dyspnea on exertion; Denies cough, orthopnea or sputum Gastrointestinal Gastrointestinal: Reports nausea; Denies abdominal pain, diarrhea or vomiting Genitourinary Genitourinary ED: Denies dysuria, hematuria or urinary frequency Musculoskeletal Musculoskeletal: Denies arthralgias, back pain, myalgias or neck pain Integumentary Denies abscess, Abrasions or rash Neurologic Neurologic: Denies headache(s) or weakness Psychiatric Psychiatric: Denies anxiety, depression or suicidal thoughts Endocrine Endocrinology: Denies polydipsia, polyphagia or polyuria Hematologic/Lymphatic Hematologic/Lymphatic: Denies easy bleeding, easy bruising or lymphadenopathy Allergic/Immunologic Allergic/Immunologic ED: Denies mouth swelling, tongue swelling or urticaria EXAM Physical Exam Const Vital Signs: 01/28/25 11:32 01/28/25 11:53 01/28/25 11:56 Temperature 97.8 F Temperature Source Oral Pulse Rate 83 Pulse Rate [Lying] 81 Pulse Rate [Sitting (for 1 minute prior to obtaining)] 91 Pulse Rate [Standing (for 1 minute prior to obtaining)] 99 Respiratory Rate 15 Respiratory Effort Normal Blood Pressure 94/62 Blood Pressure [Lying] 127/77 H Blood Pressure [Sitting (for 1 minute prior to obtaining)] 152/74 H Blood Pressure [Standing (for 1 minute prior to obtaining)] 157/94 H Blood Pressure Mean 72 Blood Pressure Mean [Lying] 93 Blood Pressure Mean [Sitting (for 1 minute prior to obtaining)] 100 Blood Pressure Mean [Standing (for 1 minute prior to obtaining)] 115 Pulse Ox 98 Oxygen Delivery Method Room Air 01/28/25 12:31 Temperature Temperature Source Pulse Rate 76 Pulse Rate [Lying] Pulse Rate [Sitting (for 1 minute prior to obtaining)] Pulse Rate [Standing (for 1 minute prior to obtaining)] Respiratory Rate 17 Respiratory Effort Blood Pressure 138/70 H Blood Pressure [Lying] Blood Pressure [Sitting (for 1 minute prior to obtaining)] Blood Pressure [Standing (for 1 minute prior to obtaining)] Blood Pressure Mean 92 Blood Pressure Mean [Lying] Blood Pressure Mean [Sitting (for 1 minute prior to obtaining)] Blood Pressure Mean [Standing (for 1 minute prior to obtaining)] Pulse Ox 99 Oxygen Delivery Method Room Air Positive well nourished and well developed General Appearance ED: well developed and NAD HEENT Reports TM's clear and moist mucous membranes normocephalic and atraumatic; Negative for trauma or tenderness Tympanic Membrane ED: Yes TM's clear Eyes PERRL and EOMs intact bilaterally General Eye ED: Negative for pale conjunctiva or scleral icterus Neck no lymphadenopathy, supple and no JVD General: Negative for tenderness Chest Wall inspection of chest normal and palpation of chest normal Chest: Negative for tenderness Resp normal respiratory effort and clear to auscultation bilaterally Effort and Inspection: Negative for respiratory distress or pain with movement Auscultation: Negative for rhonchi, wheezes or diminished lung sounds Cardio regular rate, regular rhythm, S1 normal heart sound, S2 normal heart sound and no murmurs Peripheral Pulses: pulses 2+ throughout GI normal to inspection, nondistended, normoactive bowel sounds, soft to palpation, non-tender, non-distended and no masses Back/Spine no CVA tenderness and no thoracic nor lumbar tenderness Extremity normal to inspection General Extremety ED: Negative for edema General Extremity: Negative for edema Neuro oriented x3, CN's II-XII intact bilaterally, no sensory deficits noted and gait normal Neuro Narrative: Neuro [id number] and [id number] testing within normal limits, negative Romberg, negative pronator drift, fundi benign. Hallpike maneuver performed was negative for nystagmus or symptom reproduced. Sensorium / Orientation: awake, alert, oriented to person, oriented to place and oriented to time Motor Exam: strength 5/5 throughout and strength abnormal Psych mental status grossly normal Skin no rashes or lesions noted and no wounds MDM MDM MDM Narrative Medical decision making narrative: Patient presents with syncope with prior episodes. Complaining of head pressure. States often times syncopal episodes occur when he is bent over. EKG obtained on arrival shows sinus rhythm with a rate of 82 bpm with no acute ST segment changes. Will obtain labs as well as head CT and CTA head and neck to evaluate further. Will obtain orthostatic vital signs. Will give a liter normal saline fluid bolus. CT brain and CTA head and neck were negative for acute process. EKG obtained on arrival showed a sinus rhythm with a ventricular rate of 82 bpm with no acute ST segment changes. CBC with differential showed a normal white count of 7.4 with hemoglobin 15.4 and platelet count 253. Chemistries unremarkable. Glucose was 281. Troponin was 13. Orthostatic vital signs were negative. At this point discussed results with patient and his family. He has had maybe 13 episodes of syncope in his lifetime. He has not had any significant workup for these. I do not suspect an acute coronary syndrome. Suspect possibly a vasovagal mediated episode. Recommended he follow-up with his primary care physician within next 3 to 5 days. Advised to return if persistent syncope or chest pain or palpitations or condition should worsen anyway. Lab Data Attestation: I reviewed the patient's lab results. Labs: Laboratory Results - last 24 hr 01/28/25 11:50 WBC 7.4 RBC 5.15 Hgb 15.4 Hct 44.2 MCV 85.8 MCH 29.9 MCHC 34.8 RDW Std Deviation 37.3 RDW Coeff of Cathleen 11.9 Plt Count 253 MPV 9.9 Immature Gran % (Auto) 0.300 Neut % (Auto) 61.5 Lymph % (Auto) 28.2 [place] % (Auto) 5.4 Eos % (Auto) 4.2 Baso % (Auto) 0.4 Absolute Neuts (auto) 4.5 Absolute Lymphs (auto) 2.08 Nucleated RBC % 0 Sodium 137 Potassium 4.3 Chloride 102 Carbon Dioxide 22.7 Anion Gap 13 BUN 17 Creatinine 0.76 Estim Creat Clear Calc 136.76 Est GFR (MDRD) Non-Af 104 BUN/Creatinine Ratio 21.8 H Glucose 281 H Calcium 9.4 Troponin T High Sens 13 Radiography Diagnostic Testing: Clinical Impression(s) from Imaging Studies Brain CT 01/28/25 11:45 IMPRESSION: No acute intracranial abnormalities. Reading Location: [id number] Head/Neck CTA 01/28/25 11:45 IMPRESSION: No hemodynamically significant stenosis in the head and neck. No aneurysm. Reading Location: [id number] EKG Initial EKG: Attestation: I personally reviewed and interpreted this EKG as follows: Comments: Sinus rhythm with a ventricular rate of 82 bpm with no acute ST segment changes Discharge Plan Triage Chief Complaint: Syncope ED Provider: Mandi Briseno Dx/Rx/DC Orders Clinical Impression: Syncope Instructions: ED Dizziness, Uncertain Cause, ED Fainting, Uncertain Cause Prescriptions: No Action metformin 1,000 mg tablet 1,000 mg PO BID Qty: 180 1RF (DME) FreeStyle Merlin 2 Sensor Kit See Rx Instructions .ROUTE .MEDSUPPLY Qty: 4 4RF Rx Instructions: As directed Farxiga 10 mg tablet 10 mg PO QAM Qty: 90 1RF Primary Care Provider: Ronal Ramirez Referrals: Ronal Ramirez, [Primary Care Provider, Internal Medicine] - 3-5 Days Print Language: Brazilian Disposition Disposition: Home, Self Care
[2025-01-28 11:56] VITALS: BP 127/77; BP 152/74; BP 157/94; PULSE 81; PULSE 91; PULSE 99
[2025-01-28 12:07] LABS: Hematocrit 44.2 % (40-54); Hemoglobin 15.4 g/dL (13.0-16.5); Immature Granulocytes Count 0.020 X10^3/uL (0.0-0.0); Mean Corp Hgb Conc 34.8 g/dL (32-36); Mean Corpuscular Volume 85.8 fL (80-94); Mean Platelet Vol. 9.9 fl (6.2-12.0); NRBC Flagged by Analyzer 0 % (0-5); Platelet Count 253 K/mm3 (150-450); RBC Distribution Width CV 11.9 % (11.6-14.6); RBC Distribution Width SD 37.3 fl (35.1-43.9); Red Blood Count 5.15 M/mm3 (4.6-6.2); White Blood Count 7.4 K/mm3 (4.4-11.0)
[2025-01-28] MEDS: 0.9% Normal Saline (1000mL) 1,000 ML 1000 ML IV (12:09)
[2025-01-28 12:18] LABS: Troponin T High Sensitivity 13 ng/L (<=22)
[2025-01-28 12:20] LABS: Anion Gap 13 (5-15); BUN 17 mg/dL (4-19); BUN/Creat Ratio 21.8 RATIO (10-20); Calcium,Total 9.4 mg/dL (7.6-11.0); Carbon Dioxide 22.7 mmol/L (21.0-32.0); Chloride 102 mmol/L (98-108); Estimated Creatinine Clearance 136.76 ml/min (50-250); Glucose 281 mg/dL (70-99); Potassium 4.3 mmol/L (3.3-5.1)
[2025-01-28 12:31] VITALS: BP 138/70; PULSE 76; RESP 17; O2SAT 99
[2025-01-28 13:00] VITALS: BP 141/72; PULSE 78; RESP 13; O2SAT 98
[2025-01-28 13:51] VITALS: BP 104/68; PULSE 77; RESP 12; TEMP 36.6; O2SAT 98
== END 2025-01-28 13:54 | disposition home or self-care (01) ==
PROVIDERS: Emergency Provider Emergency Medicine; PCP Family Medicine; Visit Provider Emergency Medicine
DX: R55 Syncope and collapse (principal); E11.9 Type 2 diabetes mellitus without complications; Z87.891 Personal history of nicotine dependence; Z79.84 Long term (current) use of oral hypoglycemic drugs; Z98.52 Vasectomy status
CPT/HCPCS: 70450; 70496; 70498; 80048; 84484; 85025; 93005; 96360; 96361; 99285; Q9967; A4216